=== PATIENT | female | born 1950 | race Caucasian/White ===

== ENCOUNTER 2021-09-02 15:34 | Inpatient (IN) | payer OTHER ==
[~2021-09-02] VITALS: Ht 165.1 cm; Wt 49.9 kg
[2021-09-02 15:36] VITALS: BP 170/65
[2021-09-02] MEDS ORDERED: LEXAPRO20 MG PO (15:41)
[2021-09-02] MEDS ORDERED: OLANZAPINE ODT5 MG PO (15:41)
--- NOTE | 2021-09-02 15:45 | NUR ---
PT STATED SHE HAD A PANIC ATTACK THAT CAUSED HER TO SLIP & FALL. PT STATES SHE CALLED FOR AN APPOINTMENT WITH HER PSYCHIATRIST.
[2021-09-02 22:15] VITALS: BP 128/68
[2021-09-03] VITALS (7 sets, daily range): BP systolic 95–150; BP diastolic 53–68
--- NOTE | 2021-09-03 08:13 | NUR ---
PT GIVEN REGULAR DIET BREAKFAST TRAY AT THIS TIME.
--- NOTE | 2021-09-03 11:34 | NUR ---
0845: PATIENT TRANSFERED FROM ED TO [facility] AT THIS TIME VIA BED, ACCOMPANIED BY NURSE ADMITTED FOR PAIN MANAGEMENT DUE TO L2 FRACTURE. 20 GAUGE IV TO LEFT WRIST, SALINE LOCKED. ALERT AND ORIENTED X4. SKIN INTACT. VITAL SIGNS WNL. ORIENTED TO ROOM AND FLOOR. REPORT FROM PREMA LOZANO. PATIENT RESTING IN BED. ALL QUESTIONS AND CONCERNS ADDRESSED.
--- NOTE | 2021-09-03 12:52 | EKG ---
[place] [address] ELECTROCARDIOGRAM REPORT Name: MAXIM AMAYA Room: [address] ADM IN [facility]#: [id number] Admission: 09/02/21 Attend Phys: Leander Landaverde Discharge: Date of : 50 Date of Service: 09/02/21 1535 Report #: [id number] THIS REPORT FOR: //name// [facility] ED Test Date: 2021-09-02 Test Time: 15:35:32 Pat Name: MAXIM MONIQUE Department: Room: [facility] Gender: F Vibration Engineer: JENNA : 1950 Requested By: Carl Daly Order Number: [id number] MD: Vasu Wilcox Measurements Intervals [place] Rate: 60 P: 67 TX: 161 QRS: 51 QRSD: 75 T: 65 QT: 450 QTc: 450 Interpretive Statements Sinus rhythm Borderline abnrm T, anterolateral leads No previous ECG available for comparison Electronically Signed On 09-03-2021 12:52:40 DIGITAL INTERN by Vasu Wilcox [email or web address] <ELECTRONICALLY SIGNED> By: Vasu Wilcox MD, FACC 09/03/21 1252 1535 1535 Vasu Wilcox MD, [facility] /EPI
--- NOTE | 2021-09-03 18:32 | NUR ---
PATIENT RESTING IN BED. C/O PAIN TO LOWER BACK, OXYCODONE X2 GIVEN. IV TO LEFT WRIST, SALINE LOCKED. BED IN LOW/LOCKED POSITION. BED ALARM ON. CALL LIGHT WITHIN REACH. ALL QUESTIONS AND CONCERNS ADDRESSED.
--- NOTE | 2021-09-04 04:48 | NUR ---
ASSUMED CARES AT 1920. ALERT AND ORIENTED. PLEASANT. PAIN MEDS GIVEN NEEDED. PT STATED THAT MAY BENEFIT FROM MUSCLE RELAXER. SLEPT WELL. CALL LIGHT IN REACH AND BED ALARM ON.
[2021-09-04 07:33] LABS: ABSOLUTE LYMPHOCYTES 1.9 thou/uL (0.8-5.3); ABSOLUTE MONOCYTES 0.8 thou/uL (0.0-1.2); BASOPHILS 0.4 %; HEMATOCRIT 39.7 % (37.0-47.0); HEMOGLOBIN 13.4 gm/dL (12.0-15.0); LYMPHOCYTES 24.2 %; MCH 30.3 pg (26.0-34.0); MCHC 33.6 g/dL (28.0-37.0); MONOCYTES 10.3 %; MPV 7.8 fl. (7.2-11.1); NUCLEATED RBCS 0 /100WBC; PLATELET COUNT* 178 thou/uL (150-400); POLYS 65.1 %; RBC 4.41 mil/uL (4.20-5.00); RDW-CV 14.8 % (10.5-14.5); WBC 7.7 thou/uL (4.0-11.0)
[2021-09-04 07:41] LABS: APTT 25.3 Seconds (25.0-31.3); PROTIME 10.4 Seconds (9.20-11.50)
[2021-09-04 08:00] VITALS: BP 137/78
[2021-09-04 08:39] LABS: ALBUMIN 3.6 g/dL (3.4-5.0); CALCIUM 8.8 mg/dL (8.5-10.1); CREATININE 0.9 mg/dL (0.6-1.3); MAGNESIUM 2.2 mg/dL (1.8-2.4); PHOSPHORUS* 4.2 mg/dL (2.5-4.9); POTASSIUM 3.8 mmol/L (3.5-5.1); TOTAL BILIRUBIN 1.4 mg/dL (<0.1-1.0); TOTAL PROTEIN 6.9 g/dL (6.4-8.2)
[2021-09-04 16:01] VITALS: BP 125/78
--- NOTE | 2021-09-04 16:52 | NUR ---
Case Management Assessment Assessment completed with pt. Pt resides alone, but will be able to reside with daughter when determined medically clear to discharge. Pt is independent with ADLs and uses no DME. Pt has no history of skilled, rehab, or HH. CM to continue to follow pt.
--- NOTE | 2021-09-04 17:27 | NUR ---
PATIENT RESTING IN BED, EATING DINNER. IV TO LEFT WRIST, SALINE LOCKED. C/O BACK PAIN, OXYCODONE X2 GIVEN, FLEXERILL X1 GIVEN. BED IN LOW/LOCKED POSITION. BED ALARM ON. CALL LIGHT WITHIN REACH. NO QUESTIONS OR CONCERNS VOICED.
[2021-09-04 20:15] VITALS: BP 128/78
--- NOTE | 2021-09-05 05:10 | NUR ---
PT SLEPT WELL OVERNIGHT. RECEIVING PO PAIN MED AND FLEXERIL AT BEDTIME. USING BEDPAN TO VOID OVERNIGHT. LWRIST SL. NO LABS THIS MORNING. MOVES IN BED INDEP. IR CONSULTED FOR POSSIBLE KYPHOPLASTY. AOX4, ABLE TO USE CALL LITE AND MAKE NEEDS KNOWN. BED ALARM ON FOR SAFETY.
[2021-09-05 08:00] VITALS: BP 126/81
[2021-09-05 16:00] VITALS: BP 123/79
--- NOTE | 2021-09-05 17:33 | NUR ---
CM FOLLOWUP PT NOT YET MEDICALLY CLEAR FOR DISCHARGE, BUT AGREEABLE TO REHAB SERVICES IF RECOMMENDED BY PROVIDERS. CM TO CONTINUE TO FOLLOW PT.
--- NOTE | 2021-09-05 18:22 | NUR ---
PT SLOWLY PROGRESSING TOWARTDS DC GOAL. PT WILL HAVE MRI TOMORROW OF HER BACK SO IR CAN DO THE KYPHOPLASTY. PT UP WITH PT TODAY AND WALKWED TO THE DOOR AND BACK. VSS AFEBRILE. WILL CONTINUE TO GIVE PAIN MEDICATIONS AND FLEXERIL PRESCRIBED. WILL CONTINUE TO MONITOR PLAN OF CARE.
[2021-09-05 20:00] VITALS: BP 113/73
[2021-09-06 08:14] VITALS: BP 119/74
--- NOTE | 2021-09-06 08:50 | NUR ---
PATIENT HAS RESTED WELL OFF AND ON DURING THE NIGHT. VSS ON RA. PATIENT HAS NOT BEEN UP OUT OF BED AND REQUESTS TO USE BEDPAN DURING SHIFT. MEDICATIONS GIVEN ORDERED AND CHARTED. IV IN LEFT WRIST-SL. FALL PRECAUTIONS IN PLACE AND HOURLY ROUNDS MADE. WILL CONTINUE WITH PLAN OF CARE AND NURSING TO MONITOR.
[2021-09-06 15:43] VITALS: BP 115/68
--- NOTE | 2021-09-06 18:09 | NUR ---
CM FOLLOWUP PT TO BE TRANSFERRED FOR NEUROSURGERY. PT REFERRED TO [facility] (TRANSFER DETERMINATION PENDING), [facility] (DIVERSION), [facility] (COMPLETED). CM TO CONTINUE TO FOLLOW PT FOR TRANSFER SUPPORT.
--- NOTE | 2021-09-07 04:50 | NUR ---
PATIENT HAS SLEPT OFF AND ON DURING THE NIGHT. VSS ON RA. MEDICATIONS GIVEN ORDERED AND CHARTED. PATIENT HAD FULL BED CHANGE DURING SHIFT AND PATIENT WASHED SELF UP IN BED AT HER REQUEST AND USED SHAMPOO CAP THAT WAS GIVEN TO HER. IV IN LEFT WRIST-SL. FALL PRECAUTIONS IN PLACE AND HOURLY ROUNDS MADE. WILL CONTINUE WITH PLAN OF CARE AND NURSING TO MONITOR.
[2021-09-07 08:00] VITALS: BP 107/72
[2021-09-07 15:55] VITALS: BP 114/69
--- NOTE | 2021-09-07 18:38 | NUR ---
CM FOLLOWUP PT NOT MEDICALLY CLEAR TO DC AND AWAITING A TRANSFER FOR NEUROSURGERY. CALL PLACED TO [facility], [facility], [facility] WERE UNSUCCESSFULL H[facility]ALS WERE [facility]. [facility]S TRANSFER TEAM NOT ABLE TO ACCEPT PT FOR TRANSFER. CM TO CONTINUE TO SEARCH FOR TRANSFER LOCATION.
--- NOTE | 2021-09-07 18:55 | NUR ---
Patient had a quiet day. I kept pt on bedrest due to fractured particles in her spinal column . Patient will go to neurosurg floor in the near future. Patient was tearful this afternoon. Daughter was in room, and supportive.
[2021-09-07 19:40] VITALS: BP 112/73
--- NOTE | 2021-09-08 04:11 | NUR ---
PT A&O X 4. VSS ON RA. PERCOCET GIVEN X 1 FOR PAIN. USED BEDPAN TO VOID. C/O CONSTIPATION, REQUESTED PRN MIRALAX IN THE MORNING. CALL LIGHT WITHIN REACH. WILL CONTINUE TO MONITOR.
[2021-09-08 09:16] VITALS: BP 107/56
[2021-09-08 09:20] VITALS: BP 107/56
[2021-09-08 17:28] VITALS: BP 97/62
--- NOTE | 2021-09-08 18:26 | NUR ---
Patient had a quiet day. Was medicated a couple of times for discomfort. iv site left hand patent. patient on bedrest. Gave patient miralax today. No bm.
[2021-09-08 20:30] VITALS: BP 108/90
--- NOTE | 2021-09-09 06:01 | NUR ---
PT AO X4 LYING IN BED FOR ASSESSMENT, PT COMPLAINED OF PAIN IN MID BACK FOR WHICH FLEXERIL AND MORPHINE GIVEN WITH GOOD RESULT. SCDs TO BLE FOR VTE. PT MAKES NEEDS KNOWN AT HOURLY ROUNDING. CALL LIGHT IN REACH, BED ALARM ON FOR PT SAFETY.
[2021-09-09 07:30] VITALS: BP 118/74
[2021-09-09 16:00] VITALS: BP 111/59
--- NOTE | 2021-09-09 16:32 | NUR ---
ALERT AND ORIENTED X4. UP WITH 2 ASSIST, AND GAIT BELT TO BEDSIDE COMMODE. USING PO PAIN MEDICATION TO HELP WITH BACK PAIN. MEDICATION GIVEN FOR CONSTIPATION WITH NO RESULTS YET. USES CALL LIGHT FOR ASSIST. FALL PRECAUTIONS IN PLACE.
[2021-09-09 20:20] VITALS: BP 116/73
--- NOTE | 2021-09-10 04:18 | NUR ---
PATIENT HAS REMAINED ALERT AND ORIENTED X 4 THROUGHOUT THE SHIFT AND RESTING QUIETLY ON HOURLY ROUNDS. POSTIONING SELF IN BED. ASSISTED WITH BRIEF. PAIN WELL CONTROLLED WITH PAIN MED AND MUSCLE RELAXER AT HS. FALL PRECAUTIONS IN PLACE. VITAL SIGNS STABLE. CONTINUE TO MONITOR.
[2021-09-10 07:30] VITALS: BP 114/70
--- NOTE | 2021-09-10 16:07 | NUR ---
ALERT AND ORIENTED X4. UP WITH 1 ASSIST AND GAIT BELT TO PIVOT TO BEDSIDE COMMODE. USING PO PAIN MEDICATION TO HELP WITH PAIN. HAVING NUMBNESS IN RIGHT FOOT AND TINGLING IN BILATERAL FEET. DR NOTIFIED OF NEED FOR MEDICATION FOR CONSTIPATION. MIRALAX GIVEN TODAY. INCONTINENT OF URINE IN BRIEF. USES CALL LIGHT FOR ASSIST. FALL PRECAUTIONS IN PLACE.
--- NOTE | 2021-09-10 19:28 | NUR ---
CM FOLLOWUP PT PROVIDERS NO LONGER SEEKING TRANSFER FOR NEUROSURGERY. PT TO BE DC TO SKILL[facility]. PT AGREEABLE TO SKILLED REFERRAL AND REQUEST REFERRAL TO [facility]. REFERRAL SUBMITTED. CM TO FOLLOWUP.
[2021-09-10 20:00] VITALS: BP 121/80
[2021-09-11 08:00] VITALS: BP 123/81
[2021-09-11] MEDS ORDERED: LIDODERM1 EACH TOP (08:56)
[2021-09-11] MEDS ORDERED: TRAMADOL 50 MG50 MG PO (08:56)
[2021-09-11] MEDS ORDERED: PERCOCET PO (08:56)
[2021-09-11 15:19] VITALS: BP 126/81
--- NOTE | 2021-09-11 16:39 | NUR ---
ALERT AND ORIENTED X4. UP WITH 1 ASSIST, GAIT BELT FOR PIVOT TRANSFER TO BEDSIDE COMMODE. PO PAIN MEDICATION CHANGED AND PATIENT STATED IT IS HELPFUL. LIDOCAINE PATCH APPLIED TO BACK. HAS NUMBNESS AND TINGLING IN BILATERAL FEET. USES CALL LIGHT FOR ASSIST. FALL PRECAUTIONS IN PLACE.
--- NOTE | 2021-09-11 17:30 | NUR ---
CM FOLLOWUP PT MEDICALLY ACCEPTED FOR SKILLED BY [facility]. UPDATED OT/PT NEEDED FOR AUTH.
[2021-09-11 20:20] VITALS: BP 117/73
--- NOTE | 2021-09-12 07:53 | NUR ---
PATIENT HAS SLEPT OFF AND ON DURING THE NIGHT. VSS ON RA. MEDICATIONS GIVEN ORDERED AND CHARTED. IV IN LEFT WRIST-SL. PATIENT INSTRUCTED TO USE CALL LIGHT WHEN NEEDING ASSISTANCE. FALL PRECAUTIONS IN PLACE AND HOURLY ROUNDS MADE. WILL CONTINUE WITH PLAN OF CARE AND NURSING TO MONITOR.
[2021-09-12 08:13] VITALS: BP 107/68
[2021-09-12 16:26] VITALS: BP 114/70
--- NOTE | 2021-09-12 17:37 | NUR ---
PT IS A&O X 4 PT UP WITH GAIT BELT AND 1 X ASST. PT HAD LT WRIST IV WHICH WAS DC'D THIS SHIFT. PT IS ON RM AIR. PT DOES TAKE JAK PAIN MEDS. PT HAS LIDOCAINE PATCH ON LOWER BACK. PT IS RESTING WITH CALL LIGHT IN REACH AND FALL PRECAUTIONS IN PLACE.
--- NOTE | 2021-09-12 18:05 | NUR ---
CM FOLLOWUP PT NOT MEDICALLY CLEAR TO DC. PENDING OT/PT REPORTS TO SUBMIT TO [facility] FOR AUTH.
[2021-09-12 20:20] VITALS: BP 138/57
[2021-09-13 08:00] VITALS: BP 119/76
--- NOTE | 2021-09-13 08:04 | NUR ---
PATIENT HAS SLEPT WELL THROUGHOUT THE NIGHT. VSS ON RA. MEDICATIONS GIVEN ORDERED AND CHARTED. PATIENT INSTRUCTED TO USE CALL LIGHT WHEN NEEDING ASSISTANCE. HOURLY ROUNDS MADE. WILL CONTINUE WITH PLAN OF CARE AND NURSING TO MONITOR.
[2021-09-13 15:30] VITALS: BP 112/70
--- NOTE | 2021-09-13 18:22 | NUR ---
ASSUMED CARE OF PATIENT AT 1200. AGREE WITH SHIFT ASSESSMENT. PATIENT HAS GOTTEN TRAMADOL SCHEDULED FOR PAIN ORDERED. WILL CONTINUE TO MONITOR.
[2021-09-13 20:00] VITALS: BP 105/70
[2021-09-14 08:00] VITALS: BP 112/61
--- NOTE | 2021-09-14 12:55 | NUR ---
CM FOLLOWUP PT TO DC 09/14/21 TO [facility] ([phone]).
[2021-09-14 13:15] VITALS: BP 112/61
--- NOTE | 2021-09-14 13:16 | NUR ---
PATIENT TRANSFERED TO [facility] AT THIS TIME VIA WHEELCHAIR WITH TRANSPORTER PERSONEL TO TRANSPORT VEHICLE. CHART COPIED AND SENT WITH PATIENT. REPORT GIVEN TO TAMIKA, ALL QUESTIONS AND CONCERNS ADDRESSED.
== END 2021-09-14 13:15 | DRG 552 ==
LOC: M.ERS 15:34 → M.TBA-ER 18:12 → M.3W 18:12
PROVIDERS: Internal Medicine; ADMIT Internal Medicine; ATTEND Internal Medicine
DX: S32.020A Wedge compression fracture of second lumbar vertebra, initial encounter for closed fracture (principal); E44.1 Mild protein-calorie malnutrition; Z68.1 Body mass index [BMI] 19.9 or less, adult; Z20.822 Contact with and (suspected) exposure to COVID-19; F32.9 Major depressive disorder, single episode, unspecified; F41.9 Anxiety disorder, unspecified; R53.81 Other malaise; G89.29 Other chronic pain; M54.50 Low back pain, unspecified; M48.061 Spinal stenosis, lumbar region without neurogenic claudication; W18.39XA Other fall on same level, initial encounter; Y93.89 Activity, other specified; Y92.098 Other place in other non-institutional residence as the place of occurrence of the external cause; Y99.8 Other external cause status